=== PATIENT | female | born 1945 | race Caucasian/White ===

== ENCOUNTER 2020-09-26 10:06 | Outpatient (CLI) | payer OTHER, SELFPAY ==
--- NOTE | ~2020-09-26 | CT_ITS ---
EXAMINATION:CT lung screening DATE: 09/26/2020 10:31 INDICATION: Personal history of tobacco dependence. Smoker who quit 10 years ago with 40 pack year hi story. TECHNIQUE: Computed tomography (CT) of the chest was performed without intravenous contrast. Automate d exposure control and iterative reconstruction technique were employed. The dose-length product (DLP ) was 51.18 mGy-cm. COMPARISON: None. FINDINGS: There is mild scarring at the lung apices. There is mild atelectasis bilaterally. A calcifi ed right lung nodule is consistent with old granulomatous disease. There is a 3 mm nodule in right up per lobe. No pleural effusion. There is fluid in the esophagus. There is a large sliding hiatal herni a. The heart size is normal. No pericardial effusion. There is a 3.0 cm cyst in left kidney. There is thoracolumbar dextroscoliosis. IMPRESSION: 1. Lung-RADS category 2: Benign appearance or behavior. Continue annual screening with noncontrast lo w-dose chest CT in 12 months. Reviewed, dictated and finalized at location A. IMPRESSION: 1. Lung-RADS category 2: Benign appearance or behavior. Continue annual screeni ng with noncontrast low-dose chest CT in 12 months.
== END 2020-09-26 10:07 | disposition home or self-care (01) ==
PROVIDERS: PCP Internal Medicine; Visit Provider Nurse Practitioner
DX: Z12.2 Encounter for screening for malignant neoplasm of respiratory organs (principal); Z87.891 Personal history of nicotine dependence
CPT/HCPCS: 71271

== ENCOUNTER 2021-03-29 14:25 | Outpatient (CLI) | payer OTHER, SELFPAY ==
--- NOTE | ~2021-03-29 | MM_ITS ---
EXAMINATION: MM screening christy BI w rehan HISTORY: Screening TECHNIQUE: Craniocaudal and mediolateral oblique 3-D tomosynthesis images were obtained and synthetic 2-D images were generated. CAD analysis was submitted and interpreted. COMPARISON: Comparison to multiple prior studies sequentially, with oldest reviewed study dated 10/07. BREAST PARENCHYMAL COMPOSITION: The breasts are heterogenously dense, which may obscure small masses. FINDINGS: The left breast is stable without evidence for malignancy. There is a focal asymmetry later ally in the right breast on CC view. There are no suspicious calcifications or architectural distorti on. Stable mass lower aspect of the right breast with associated tissue marker. IMPRESSION: 1. Focal right breast asymmetry lateral aspect of the right breast on CC view. 2. Additional mammographic views and possible breast ultrasound are recommended. BI-RADS Category 0: Incomplete: Needs additional imaging evaluation. Reviewed, dictated and finalized at location A. IMPRESSION: 1. Focal right breast asymmetry lateral aspect of the right breast on CC view. 2. Additional mammographic views and possible breast ultrasound are recommended . BI-RADS Category 0: Incomplete: Needs additional imaging evaluation.
== END 2021-03-29 14:26 | disposition home or self-care (01) ==
PROVIDERS: PCP Internal Medicine; Visit Provider Internal Medicine
DX: Z12.31 Encounter for screening mammogram for malignant neoplasm of breast (principal); R92.8 Other abnormal and inconclusive findings on diagnostic imaging of breast
CPT/HCPCS: 77063; 77067

== ENCOUNTER 2021-05-10 13:45 | Outpatient (CLI) | payer OTHER, SELFPAY ==
--- NOTE | ~2021-05-10 | MMUS_ITS ---
EXAMINATION: MM diagnostic christy RT w rehan, US breast RT complete HISTORY: Focal asymmetry reported in lateral aspect of right breast on screening craniocaudal view of 03/29/2021 TECHNIQUE: Additional 3-D tomosynthesis images of the right breast were performed and synthetic 2-D i mages were generated. CAD analysis was submitted and interpreted. High resolution complete right jose st ultrasound including all 4 quadrants and subareolar area was performed. COMPARISON: 03/29/2021 bilateral screening mammogram FINDINGS: MAMMOGRAPHIC FINDINGS: There is a biopsy marker adjacent to a 6.5 mm circumscribed opacity in the lower inner right breast; history of benign right breast biopsy. No suspicious mass, architectural distortion, malignant calcification, skin thickening or retraction is detected. ULTRASOUND: No suspicious mass or suspicious shadowing of the right breast is detected IMPRESSION: 1. No mammographic evidence of malignancy 2. Routine mammographic screening is recommended. BI-RADS Category 2: Benign Reviewed, dictated and finalized at location A. IMPRESSION: 1. No mammographic evidence of malignancy 2. Routine mammographic screening is recommended. BI-RADS Category 2: Benign
== END 2021-05-10 13:46 | disposition home or self-care (01) ==
LOC: ANHIMG 13:47
PROVIDERS: PCP Internal Medicine; Visit Provider Internal Medicine
DX: R92.8 Other abnormal and inconclusive findings on diagnostic imaging of breast (principal)
CPT/HCPCS: 76641; 77061; 77065; G0279

== ENCOUNTER 2022-08-05 10:55 | Outpatient (CLI) | payer OTHER, SELFPAY ==
--- NOTE | ~2022-08-05 | XR_ITS ---
Clinical Indication: Shortness of breath PA and lateral views of the chest: Comparison: 09/19/2014 Findings: The lungs are clear, without evidence of focal consolidation or pleural effusion. Cardiome diastinal silhouette is within normal limits. Stable scoliosis of the spine, probably dextroscoliosis of the thoracic spine. Impression: Clear lungs. Stable dextroscoliosis of the thoracic spine. Reviewed, dictated and finalized at location M. [employer] Impression: Clear lungs. Stable dextroscoliosis of the thoracic spine.
== END 2022-08-05 10:56 | disposition home or self-care (01) ==
PROVIDERS: PCP Internal Medicine; Visit Provider Nurse Practitioner Family
DX: R06.02 Shortness of breath (principal); R53.83 Other fatigue; M41.84 Other forms of scoliosis, thoracic region
CPT/HCPCS: 71046